=== PATIENT | male | born 1940 | race Caucasian/White ===

== ENCOUNTER 2017-12-19 10:18 | Emergency (ER) | payer MEDICARE, SELFPAY ==
[2017-12-19 10:20] VITALS: BP 235/106; PULSE 64; RESP 23; TEMP 36; O2SAT 95; BMI 28.7
--- NOTE | 2017-12-19 10:23 | EKG12_ITS ---
Test Reason : CVA Blood Pressure : / mmHG Vent. Rate : 047 BPM Atrial Rate : 047 BPM P-R Int : 736 ms QRS Dur : 114 ms QT Int : 524 ms P-R-T Axes : 000 070 073 degrees QTc Int : 463 ms Sinus bradycardia with 1st degree A-V block Left ventricular hypertrophy with repolarization abnormality Abnormal ECG Confirmed by AMAN MCDONALD, ZACHARY ([id number]), editor farm journal BONY WARD ([id number]) on 12/21/2017 10:14:18 AM Referred By: VENESSA Confirmed By:ZACHARY NEWTON MD
--- NOTE | 2017-12-19 10:23 | CT_ITS ---
STUDY: CT BRAIN WITHOUT CONTRAST REASON FOR EXAM: Male, 77 years old. Stroke protocol status post fall on blood thinners. RADIATION DOSAGE (If Supplied By Facility): CTDIvol = ( 44.99 ) mGy, DLP = ( 829.85 ) mGycm TECHNIQUE: Transaxial CT imaging of the brain was performed without administration of intravenous contrast material. Individualized dose optimization techniques were used for this CT. COMPARISON: None. FINDINGS: There is a focus of right posterior parietal soft tissue swelling and underlying hematoma measuring 5.6 x 1.9 cm. There is no visualized evidence of an acute fracture. There is visualized calcification of the vertebral arteries and cavernous carotid arteries. Normal calvarium. There is hyperdensity within the midline towards the vertex having the falx measuring 4.9 x 2.9 x 2.8 cm. From this largest area of hemorrhage, there is subdural hemorrhage, subarachnoid hemorrhage and blood extending into the bilateral ventricles as well as layering along the tentorium. There is right greater than left cerebral edema with loss of the flores-white junction and effacement of the sulci. In addition there is a compressed or inferiorly depressed appearance of the anterior horns. There is no intracranial hemorrhage. There are no findings of an acute ischemic infarction. Normal visualized paranasal sinuses. CT/Brain/Head without Contrast IMPRESSION: Large amount of hemorrhage within the brain which is large and centrally located above the ventricles primarily. There is anterior posterior falx subdural hemorrhage as well as subarachnoid hemorrhage. This may be posttraumatic potentially due to underlying vascular malformation/aneurysm. Potentially hemorrhagic mass could have this appearance. Given the central location hemorrhagic infarct is thought to be less likely. Could consider hemorrhagic tumor in the appropriate setting. Right greater than left cerebral edema. Right posterior parietal soft tissue swelling and hematoma. N.B. : The above information has been verbally conveyed by Arabella Robles MD to Kal Barkley, Referring Physician, on 12/19/2017 11:05:52 (ET). Electronically Signed: Arabella Robles MD at 11:10 EDT Tel , Service support , N.B. : The above information has been verbally conveyed by Arabella Robles MD to Kal Barkley, Referring Physician, on 12/19/2017 11:05:52 (ET).
--- NOTE | 2017-12-19 10:23 | RAD_ITS ---
STUDY: X-RAY CHEST REASON FOR EXAM: Male, 77 years old. Unresponsive status post fall TECHNIQUE: Single to AP portable view of the chest. COMPARISON: None. FINDINGS: An endotracheal tube is present 3.9 cm above the aristeo. An NG tube is present tip is in the stomach. The lungs are clear and expanded. There is no demonstrated pleural abnormality. Normal size heart. Normal mediastinum and americo. Normal visualized pulmonary arteries. There is atherosclerotic calcification of the aortic arch with tortuosity. There are diffuse degenerative changes of the visualized thoracic spine. There is a suggestion of a bony exostosis extending from the right proximal humerus. There is no demonstrated abnormality of the visualized soft tissue structures of the upper abdomen. RAD/Chest 1 View IMPRESSION: Post intubation, ET tube in satisfactory position. NG tube is in satisfactory position. No visualized focal infiltrate. Electronically Signed: Arabella Robles MD at 11:41 EDT Tel , Service support ,
[2017-12-19 10:44] LABS: Prothrombin Time (Protime)PT. 48.2 SECONDS (11.7-14.9)
[2017-12-19 10:45] VITALS: RESP 22; O2SAT 100
[2017-12-19 10:45] LABS: Partial Thromboplast Time 67.2 Seconds (24.1-36.2)
[2017-12-19 10:48] LABS: Anion Gap 4 (5-15); BUN 18 mg/dL (7-18); Calcium,Total 8.4 mg/dL (8.5-10.1); Chloride 111 mmol/L (98-107); Creatinine, Serum 1.63 mg/dL (0.70-1.30); EST Glomerular Filtration Rate 44 mL/min (>60); Est Glom Filt Rate - Afr Amer 53 mL/min (>60); Estimated Creatinine Clearance 39.81 ml/min; Glucose 159 mg/dL (74-106); Potassium 4.6 mmol/L (3.5-5.1); Sodium Level 140 mmol/L (136-145)
[2017-12-19 10:49] LABS: International Normalized Ratio 5.2
--- NOTE | 2017-12-19 10:50 | ED.DCSUM_ITS ---
- ER Visit Summary Date of Service: 12/19/17 Chief Complaint: Left-sided weakness History of Present Illness: The patient is a 77 M who presents with left-sided weakness that was noticed today. Patient fell yesterday and hit his head. Patient apparently went to bed last night and woke up with left-sided weakness today. Patient is nonverbal and is a poor historian. Patient is able to follow commands. Patient is on Coumadin and Plavix. Physical Examination: Vital signs showed an elevated blood pressure of 235/106 and a heart rate of 64. Patient is awake and follows commands but is nonverbal. Patient opened his eyes to verbal stimuli. Patient was able to squeeze with his right hand but not with his left. Patient had no movement of his left upper extremity. Patient was able to move his toes on his right foot but not his left. Pupils are 3 mm bilaterally. There is a hematoma noted over the right parietal area. There is no bony crepitance or step-off. Heart was regular and bradycardic. Lungs are clear and equal bilaterally. Abdomen is soft. Bowel sounds are normal. Test Results: CT scan of the brain showed a large subdural and subarachnoid hemorrhage. There is no midline shift noted. EKG showed sinus bradycardia with a rate of 47. There is a first-degree AV block noted. There are no acute ST or T-wave changes. CBC was within normal limits. Creatinine was slightly elevated at 1.63. Glucose was 159. Chloride was 111. INR was elevated at 5.2. CT scan of the cervical spine was obtained and is pending. Emergency Department Course and Treatment: Patient was given 60 mg of rocuronium and 30 mg of etomidate. Patient was intubated with an 8.0 ET tube to 22 cm at the lip. Patient was hyperventilated with a rate of 22 and a tidal volume of 450. Patient was given 10 mg of vitamin K. Patient was also given K Centra. Patient was given a dose of labetalol. Case was discussed with [facility]. Patient will be transferred to the emergency department there by helicopter. Critical care time was 45 minutes. Disposition: Transferred to [facility] Impression: Subdural and subarachnoid hemorrhage This note was generated with [employer] dictation software. It may contain incorrect words, spelling, and punctuation that were not noted in review of the chart prior to signing ED Disposition - Plan for ED Patient: Disposition: [facility] Chief Complaint: Neuro S/Sx Diagnosis: Subdural hemorrhage, Subarachnoid hemorrhage Referrals: Yuri Jain [Primary Care Provider] -
--- NOTE | 2017-12-19 10:56 | CT_ITS ---
STUDY: CT CERVICAL SPINE WITHOUT CONTRAST REASON FOR EXAM: Male, 77 years old. Status post fall. [facility] waiting on patient. RADIATION DOSAGE (If Supplied By Facility): CTDIvol = ( 28.44 ) mGy, DLP = ( 641.12 ) mGycm TECHNIQUE: High resolution transaxial imaging was performed without contrast material. Sagittal and coronal images were reconstructed. Individualized dose optimization techniques were used for this CT. COMPARISON: None FINDINGS: Normal craniovertebral junction. Degenerative narrowing of the predental space. Ossification of the anterior atlantooccipital ligament. Normal lateral atlantoaxial articulations. Normal odontoid process. Normal cervical lordosis. Acute nondisplaced vertical linear fracture of the right C5 articular pillar (series 602, image 13). No other acute fractures of the cervical spine. C2-3: Normal endplates. Normal disc height and morphology. Normal central canal and intervertebral neuroforamina. C3-4: Normal endplates. Moderate disc space height narrowing. Normal central canal. Normal left intervertebral neural foramen. Moderately pronounced stenosis of the right intervertebral neural foramen. Moderately pronounced left due to facet arthropathy. Mild right degenerative facet arthropathy. C4-5: Normal endplates. Normal disc height and morphology. Normal central canal and bilateral intervertebral neural foramina. Moderate right degenerative facet arthropathy. Normal left facet joint. Acute vertical nondisplaced linear fracture of the right C5 articular pillar (series 602, image 13). The left C5 articular pillar is intact. Both C4 articular pillars are intact. C5-6: Normal endplates. Pronounced disc space height narrowing. Normal central canal. Moderate stenosis of the right intervertebral neural foramen. Normal left intervertebral neural foramen. Acute nondisplaced vertical linear fracture of the right C5 articular pillar (series 602, image 13). The left C5 articular pillar is intact. Both C6 articular pillars are intact. C6-7: Normal endplates. Normal disc height and morphology. Normal central canal and intervertebral neuroforamina. C7-T1: Anterior marginal spurs. Normal endplates. Pronounced disc space height narrowing. Normal central canal and bilateral intervertebral neural foramina. T1-T2 and T2-T3: Normal endplates. Normal disc height and morphology. Normal central canal and bilateral intervertebral neural foramina. Normal visualized soft tissue structures. CT/Spine Cervical without Contras IMPRESSION: 1. Acute nondisplaced vertical linear fracture of the right C5 articular pillar. 2. No other acute fractures of the cervical spine. 3. Moderate C5-C6 disc space height narrowing and moderately pronounced stenosis of the right C5-C6 intervertebral neural foramen. 4. Mild stenosis of the right C4-C5 intervertebral neural foramen and moderate right C4-C5 degenerative facet arthropathy. 5. Moderate C3-C4 disc space height narrowing and moderately pronounced stenosis of the right C3-C4 intervertebral neural foramen. N.B. : The above information has been verbally conveyed by Jcarlos Sanders MD to Kal Barkley, Referring Physician, on 12/19/2017 11:49:08 (ET). Electronically Signed: Jcarlos Sanders MD at 11:52 EDT , Service support , N.B. : The above information has been verbally conveyed by Jcarlos Sanders MD to Kal Barkley, Referring Physician, on 12/19/2017 11:49:08 (ET).
[2017-12-19 11:00] LABS: Absolute Lymphocyte Count 1.96 X10^3/ul (0.83-4.51); Absolute Neutrophil Count 5.3 X10^3/uL (2.0-7.7); Basophil# 0.01 X10^3/uL; Basophil% 0.1 % (0-1); Eosinophil# 0.13 X10^3/uL; Eosinophils% 1.6 % (0-5); Hematocrit 43.7 % (40-54); Hemoglobin 13.6 g/dl (13.0-16.5); Lymphocyte # 1.96 X10^3/ul (4.0); Lymphocyte % 24.2 % (19-41); Mean Corp Hgb Conc 31.1 g/gl (32-36); Mean Corpuscular Hgb 26.1 pg (27.0-32.0); Mean Corpuscular Volume 83.9 fL (80-94); Mean Platelet Vol. 9.9 fl (6.2-12.0); Monocyte# 0.73 X10^3/uL; Neutrophil # 5.26 X10^3/uL (2.7-7.7); Platelet Count 204 K/mm3 (150-450); RBC Distribution Width SD 58.4 fl (35.1-43.9); Red Blood Count 5.21 M/mm3 (4.6-6.2); White Blood Count 8.1 K/mm3 (4.4-11.0)
[2017-12-19 11:01] LABS: Differential Indicated SCAN CRITERIA MET; POSITIVE COUNT NO; POSITIVE DIFFERENTIAL NO; POSITIVE MORPHOLOGY YES
[2017-12-19 11:02] VITALS: BP 211/110; PULSE 46; RESP 15; O2SAT 100
--- NOTE | 2017-12-19 11:30 | ED.RN ---
PT UNRESPONSIVE AND UNABLE TO COMPLETE NIH ORDERED. PT INTUBATED AND UNABLE TO COMPLETE SUBSEQUENT NIH INTERVENTIONS WELL DYSPHAGIA SCREEN. ADULT C-COLLARS WERE UNABLE TO BE LOCATED, COLLAR WAS APPLIED BY SEAN UPON ARRIVAL. REPORT GIVEN TO [facility] AND CARE TRANSFERRED.
[2017-12-19 11:32] LABS: Anisocytosis 2+; Differential Comment SCANNED; Microcytosis 1+; Ovalocyte 1+; Poikilocytosis 1+
[2017-12-22 15:56] LABS: Bedside Glucose 169 mg/dL (70-110)
== END 2017-12-19 12:00 | disposition short-term general hospital (02) ==
PROVIDERS: Emergency Provider Emergency Medicine; Family Provider Family Medicine; PCP Family Medicine
DX: I62.00 Nontraumatic subdural hemorrhage, unspecified (principal); I60.9 Nontraumatic subarachnoid hemorrhage, unspecified; G81.94 Hemiplegia, unspecified affecting left nondominant side; Z79.01 Long term (current) use of anticoagulants; Z79.02 Long term (current) use of antithrombotics/antiplatelets; Z79.899 Other long term (current) drug therapy
CPT/HCPCS: 31500; 70450; 71045; 72125; 80048; 82962; 84484; 85025; 85610; 85730; 93005; 94002; 99251; 99285; C9132; J7030; A4216; G0463; J3490